=== PATIENT | female | born 1945 | race Caucasian/White ===

== ENCOUNTER 2018-10-21 07:39 | Day surgery (SDC) | payer OTHER ==
[2018-10-21] MEDS ORDERED: DIPHENHYDRAMINE 50 MG INJ (09:06)
[2018-10-21] MEDS ORDERED: FENTAnyl 50 MCG/ML VIAL ×2 (09:32→09:38)
[2018-10-21] MEDS ORDERED: MIDAZOLAM 1 MG/ML 2 ML INJ ×2 (09:32)
== END 2018-10-21 10:40 | disposition home or self-care (01) ==
LOC: GIL 07:39
DX: K44.9 Diaphragmatic hernia without obstruction or gangrene (principal); K20.8 Other esophagitis
CPT/HCPCS: 43235